=== PATIENT | male | born 1995 | race Hispanic/Latino ===

== ENCOUNTER 2018-06-04 19:55 | Emergency (ER) | payer OTHER ==
[2018-06-04 20:01] VITALS: BP 151/87; RESP 18; TEMP 98.5; O2SAT 98
--- NOTE | 2018-06-04 20:48 | ED PDOC ---
HPI: General Adult Time Seen by Provider: 06/04/18 20:06 Chief Complaint (Nursing): Body Fluid Exposure Chief Complaint (Provider): Body fluid exposure History Per: Patient History/Exam Limitations: no limitations Onset/Duration Of Symptoms: Mins (15x minutes prior to arrival) Severity: Moderate Additional Complaint(s): 23 year old male with no pertinent passt medical history presents to the ED for an evaluation status post body fluid exposure 15x minutes prior to arrival. 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 Patient denies swallowing, and washed his mouth immediately. Patient states that he is uncertain of source patient's medical history. Patient notes that the vomit was non-bloody. PMD: None provided. Past Medical History Reviewed: Historical Data, Nursing Documentation, Vital Signs Vital Signs: Last Vital Signs Temp 98.5 F 06/04/18 20:00 Pulse 110 H 06/04/18 20:00 Resp 18 06/04/18 20:00 BP 151/87 H 06/04/18 20:00 Pulse Ox 98 06/04/18 20:00 RAJESH Report Viewed: Yes - Medical History PMH: Asthma - Surgical History Surgical History: Tonsillectomy (ADENOIDECTOMY) - Family History Family History: States: No Known Family Hx - Social History Current smoker - smoking cessation education provided: No Alcohol: None Drugs: Denies - Allergies Allergies/Adverse Reactions: Allergies Allergy/AdvReac Type Severity Reaction Status Date / Time Sulfa (Sulfonamide Allergy RASH Verified 06/04/18 19:57 Antibiotics) triamcinolone [From Kenalog] Allergy RASH Verified 06/04/18 19:57 Review of Systems ROS Statement: Except As Marked, All Systems Reviewed And Found Negative Physical Exam - Reviewed Nursing Documentation Reviewed: Yes Vital Signs Reviewed: Yes - Physical Exam Appears: Positive for: Well, Non-toxic, No Acute Distress Head Exam: Positive for: ATRAUMATIC, NORMOCEPHALIC Skin: Positive for: Normal Color, Warm, Dry Eye Exam: Positive for: Normal appearance ENT: Positive for: Other (lips: chapped. (-) open wounds.) Neurologic/Psych: Positive for: Alert, Oriented (3x) - ECG O2 Sat by Pulse Oximetry: 98 (RA) Pulse Ox Interpretation: Normal Medical Decision Making Medical Decision Makin:06 Initial impression: 23 year old male with body fluid exposure Patient uncertain of his hepatits titers status. Patient informed that vomitus is not a vehicle for transmission of HIV. Scribe Attestation: Documented byLois Jimenez, acting as a scribe for Richmond Blancas Provider Scribe Attestation: All medical record entries made by the Scribe were at my direction and personally dictated by me. I have reviewed the chart and agree that the record accurately reflects my personal performance of the history, physical exam, medical decision making, and the department course for this patient. I have also personally directed, reviewed, and agree with the discharge instructions and disposition. Disposition - Clinical Impression Clinical Impression: History of exposure to hazardous bodily fluids - Patient ED Disposition Is Patient to be Admitted: No - Disposition Disposition: Routine/Home Disposition Time: 20:42 Condition: STABLE Additional Instructions: JOSE LUIS EDWARD, thank you for letting us take care of you today. Your provider was Kaila Tate MD and you were treated for EXPOSURE BODILY FLUIDS. The emergency medical care you received today was directed at your acute symptoms. If you were prescribed any medication, please fill it and take as directed. It may take several days for your symptoms to resolve. Return to the Emergency Department if your symptoms worsen, do not improve, or if you have any other problems. Please contact your doctor or call one of the physicians/clinics you have been referred to that are listed on the Patient Visit Information form that is included in your discharge packet. Bring any paperwork you were given at discharge with you along with any medications you are taking to your follow up visit. Our treatment cannot replace ongoing medical care by a primary care provider outside of the emergency department. Thank you for allowing the [facility] team to be part of your care today. If you had an X-Ray or CT scan: A Radiologist will review the ED reading if any change in treatment is needed we will contact you. If you had a blood, urine, or wound culture: It will take several days for the results, if any change in treatment is needed we will contact you. If you had an STI test: It will take 48 hours for the results. Please call after 1 week if you have not heard back. Instructions: Blood or Body Fluid Exposure Forms: [employer] (Mongolian)
[2018-06-04 21:00] VITALS: PULSE 100
[2018-06-06 08:22] LABS: HEPATITIS B SURFACE AG Negative (NEGATIVE)
[2018-06-06 08:28] LABS: HEPATITIS A IGM NEGATIVE (NEGATIVE); HEPATITIS B CORE AB NEGATIVE (NEGATIVE)
[2018-06-06 08:39] LABS: HEPATITIS C ANTIBODY NEGATIVE (NEGATIVE)
== END 2018-06-04 20:42 | disposition home or self-care (01) ==
LOC: H.ER 19:55
DX: Z77.21 Contact with and (suspected) exposure to potentially hazardous body fluids (principal); Y99.0 Civilian activity done for income or pay; Z88.2 Allergy status to sulfonamides